=== PATIENT | male | born 1995 | race Hispanic/Latino ===

== ENCOUNTER 2018-02-12 07:18 | Emergency (ER) | payer BC ==
--- NOTE | 2018-02-12 08:49 | ED PDOC ---
Lower Extremity Pain/Injury Time Seen by Provider: 02/12/18 07:39 Chief Complaint (Nursing): Lower Extremity Problem/Injury Chief Complaint (Provider): Left Ankle Injury History Per: Patient History/Exam Limitations: no limitations Onset/Duration Of Symptoms: Days (x2) Current Symptoms Are (Timing): Still Present Additional Complaint(s): 22 year old male, with no significant PMHx, presenting for evaluation of left ankle injury x2 days. Patient states he was playing football yesterday around 1999 when he rolled his left ankle. He reports some pain at the time, but states he was able to ambulate. Patient states this morning when he woke up he was unable to bear any weight on the ankle and reports taking Advil 400mg 1 hour prior to arrival with some relief of pain. He otherwise denies any numbness or tingling. Past Medical History Reviewed: Historical Data, Nursing Documentation, Vital Signs Vital Signs: Last Vital Signs Temp 98.3 F 02/12/18 07:25 Pulse 107 H 02/12/18 07:25 Resp 19 02/12/18 07:25 BP 139/81 02/12/18 07:25 Pulse Ox 98 02/12/18 07:25 - Medical History PMH: No Chronic Diseases - Surgical History Surgical History: No Surg Hx - Family History Family History: States: Unknown Family Hx - Allergies Allergies/Adverse Reactions: Allergies Allergy/AdvReac Type Severity Reaction Status Date / Time No Known Allergies Allergy Verified 02/12/18 07:52 Review of Systems ROS Statement: Except As Marked, All Systems Reviewed And Found Negative Musculoskeletal: Positive for: Foot Pain (left ankle pain) Neurological: Negative for: Numbness Physical Exam - Reviewed Nursing Documentation Reviewed: Yes Vital Signs Reviewed: Yes - Physical Exam Appears: Positive for: Non-toxic, No Acute Distress Extremity: Positive for: Tenderness (left lateral malleolus tenderness and swelling with decreased ROM secondary to pain; achilles intact), Other Neurologic/Psych: Positive for: Alert, Oriented (x3) - ECG O2 Sat by Pulse Oximetry: 98 (RA) Pulse Ox Interpretation: Normal Medical Decision Making Medical Decision Makin Impression: Left Ankle Injury Plan: -Podiatry consult -Left Ankle X-ray -Reevaluation 0852 LEFT ANKLE X-RAY FINDINGS: BONES: Normal. No fracture. JOINTS: Normal. No osteoarthritis. Ankle mortise maintained. Talar dome intact SOFT TISSUES: Lateral perimalleolar soft tissue swelling OTHER FINDINGS: none. IMPRESSION: No fracture or dislocation is suggested. Mild soft tissue swelling in the area of interest is noted. X-ray reviewed and no acute fracture or dislocation noted. Findings discussed with patient. 0931: Patient seen and evaluated by podiatry who recommend outpatient follow up and compression dressing. Scribe Attestation: Documented by Agapito Bradley, acting as a scribe for Veronica Toney MD. Provider Scribe Attestation: All medical record entries made by the Scribe were at my direction and personally dictated by me. I have reviewed the chart and agree that the record accurately reflects my personal performance of the history, physical exam, medical decision making, and the department course for this patient. I have also personally directed, reviewed, and agree with the discharge instructions and disposition. Disposition - Clinical Impression Clinical Impression: Ankle sprain - Patient ED Disposition Is Patient to be Admitted: No Doctor Will See Patient In The: Office Counseled Patient/Family Regarding: Diagnosis, Need For Followup - Disposition Referrals: Podiatry Clinic [Outside] [facility] [Outside] Disposition: Routine/Home Disposition Time: 10:30 Condition: STABLE Instructions: Ankle Sprain Forms: [facility] ([facility]), [facility] ED School/Work Excuse - POA Present On Arrival: None
--- NOTE | 2018-02-12 08:56 | RAD ---
Date of service: 02/12/2018 PROCEDURE: Left Ankle Radiographs. HISTORY: inversion last night COMPARISON: None FINDINGS: BONES: Normal. No fracture. JOINTS: Normal. No osteoarthritis. Ankle mortise maintained. Talar dome intact SOFT TISSUES: Lateral perimalleolar soft tissue swelling OTHER FINDINGS: none. IMPRESSION: No fracture or dislocation is suggested. Mild soft tissue swelling in the area of interest is noted.
--- NOTE | 2018-02-12 09:50 | CP.PCM.CON ---
History of Present Illness - History of Present Illness History of Present Illness: Podiatry Consult Note for Dr. Youssef: 22 yo male patient, with no significant PMHx, seen and evaluated in the ED for L ankle pain. Patient states that he was playing football yesterday when he twisted his ankle. At the time of injury he was able to weightbear but over the course of a few hours he was not able to ambulate. He reports most tenderness to the outside of his ankle with 10/10 pain. Patient is accompanied by father at [facility]. Patient denies N/V/F/SOB. PMHx: Denies PSHx: Denies ALL: NKDA Review of Systems - Review of Systems Review of Systems: As per HPI Past Patient History - Past Social History Smoking Status: Current Some Days Smoker - PSYCHIATRIC Hx Substance Use: No - SURGICAL HISTORY Hx Surgeries: No - ANESTHESIA Hx Anesthesia: No Meds Allergies/Adverse Reactions: Allergies Allergy/AdvReac Type Severity Reaction Status Date / Time No Known Allergies Allergy Verified 02/12/18 07:52 Physical Exam - Constitutional Appears: Well, Non-toxic, No Acute Distress - Head Exam Head Exam: ATRAUMATIC, NORMOCEPHALIC - Extremities Exam Additional comments: Vascular: DP/PT pulses 2/4, CFT < 3 seconds to all digits, TG warm to warm, +2 brawny edema noted to lateral aspect of L lower extremity Ortho: Pain upon palpation to lateral malleolus, pain upon palpation to posterior aspect of lateral malleolus along the course of the peroneal tendons, MMT 3/5 due to patient guarding Neuro: Gross and protective sensation intact Derm: No open, lesions, no interdigital maceration, no erythema, no clinical signs of infection noted. - Neurological Exam Neurological exam: Alert, Oriented x3 - Psychiatric Exam Psychiatric exam: Normal Affect, Normal Mood Results - Vital Signs Recent Vital Signs: Last Vital Signs Temp 98.3 F 02/12/18 07:25 Pulse 107 H 02/12/18 07:25 Resp 19 02/12/18 07:25 BP 139/81 02/12/18 07:25 Pulse Ox 98 02/12/18 09:31 Assessment & Plan - Assessment and Plan (Free Text) Assessment: 22 yo male patient, with no significant PMHx, seen and evaluated in the ED for L ankle pain secondary to lateral ankle sprain Plan: Patient seen and evaluated with all questions and concerns addressed L ankle x-rays taken; No fracture or dislocation is suggested. Mild soft tissue swelling in the area of interest is noted Little compression applied to LLE; keep dressing clean, dry, intact Crutches dispensed to patient and encouraged to remain NWB until his follow up appointment Patient to F/U in Podiatry Clinic with Dr. Youssef - Will follow up with outpatient MRI if symptoms persist, will reassess in clinic Thank you for the consult - Date & Time Date: 02/12/18 Time: 09:51
[2018-02-12 11:08] VITALS: TEMP 98.3; O2SAT 98
[2018-02-12 11:44] VITALS: BP 123/70; PULSE 86; RESP 18
== END 2018-02-12 11:15 | disposition home or self-care (01) ==
LOC: H.ER 07:18
DX: S93.402A Sprain of unspecified ligament of left ankle, initial encounter (principal); X50.9XXA Other and unspecified overexertion or strenuous movements or postures, initial encounter; Y93.61 Activity, american tackle football